=== PATIENT | male | born 1975 | race Caucasian/White ===

== ENCOUNTER 2019-10-13 01:57 | Emergency (ER) | payer SELFPAY ==
--- NOTE | ~2019-10-13 | XR_ITS ---
EXAMINATION: XR hand RT min 3V DATE: 10/13/2019 02:33 INDICATION: Right hand pain. Injury. TECHNIQUE: 3 views of right hand were obtained. COMPARISON: None. FINDINGS: Bone alignment is normal. No fracture. There is mild osteoarthritis of first carpometacarpa l joint, second metacarpophalangeal joint, and second distal interphalangeal joint. IMPRESSION: 1. Mild polyarticular osteoarthritis. Reviewed, dictated and finalized at location [facility]. [employer]
--- NOTE | 2019-10-13 01:59 | ED.UPPEXIN ---
HPI - Extremity Injury (Upper) General Chief Complaint: Extremity Injury, Upper Stated Complaint: finger pain Time Seen by Provider: 10/13/19 02:15 Source: patient Mode of arrival: ambulatory Limitations: no limitations History of Present Illness HPI narrative: The pt is a 43 y/o male who presents to the ED with c/o a rt index finger injury that occurred 2 days ago. The pt states that he was pushing on something and hyperextended his rt index finger. He reports rt index finger pain and numbness, describing the pain as a throbbing around his knuckle. The pt notes that he did not sustain any other injuries during the event. MD complaint: injury to: right (index finger) Onset (ago): day(s) (2) Other injuries: none Context: injury Associated symptoms: denies other symptoms Related Data Allergies Allergy/AdvReac Type Severity Reaction Status Date / Time No Known Allergies Allergy Verified 08/12/19 14:01 Review of Systems Review of Systems: All systems reviewed & are unremarkable except as noted in HPI and below Musculoskeletal: Musculoskeletal: Reports other (rt index finger pain) Neurologic: Reports numbness (rt index finger) [facility] Past Medical History Medical History (Updated 10/13/19 @ 02:37 by Brent Barrett DO) Arthritis Fractures Healing, ligaments torn right ankle Sciatica Surgical History Surgical History (Updated 10/13/19 @ 01:59 by Christa Wheat) No pertinent past surgical history Social History Social History (Updated 10/13/19 @ 02:00 by Christa Wheat) Smoking status: Never smoker Gender identity (if verbalized by the patient): Male Exam Narrative: Exam Narrative: APPEARANCE: No acute distress, nontoxic, resting in bed Eyes: EOMI HEENT: Normocephalic, atraumatic, RESPIRATORY: No respiratory distress MUSCULOSKELETAl: The right second digit is diffuselly swollen there is increased swelling around the PIP with ecchymosis present, pain with flexion of the PIP joint, full extension of the PIP, no tenderness over the MCP or DIP joint with full range of motion of both, capillary refill less than 3 seconds, neurovascular intact NEURO: Awake and alert. Following commands, speech normal, no focal deficits SKIN:: Warm, dry. Normal Color no rash or lesions Course Course Emergency Course: Discussed with patient results of workup and diagnosis. Discussed need for follow-up with primary care, proper use of medication, and reasons to return to the emergency department. Patient understands and agrees to current treatment plan Vital Signs Vital signs: Vital Signs Temperature 97.5 F L 10/13/19 02:02 Pulse Rate 100 10/13/19 02:02 Respiratory Rate 18 10/13/19 02:02 Blood Pressure 136/78 10/13/19 02:02 Pulse Oximetry 100 10/13/19 02:02 Temperature 97.5 F L 10/13/19 02:02 Pulse Rate 100 10/13/19 02:02 Respiratory Rate 18 10/13/19 02:02 Blood Pressure 136/78 10/13/19 02:02 Pulse Oximetry 100 10/13/19 02:02 MDM - Extremity Injury (Upper) Imaging Data My impression: RT HAND XR 10/13/19: IMPRESSION: Negative. Discharge Plan Discharge Clinical Impression: Other sprain of right index finger, initial encounter Patient Disposition: Home, Self-Care Condition: Stable Instructions: Antibiotic Form, Finger Sprain (ED) Additional Instructions: Return for increasing pain numbness or tingling in extremities or any other symptoms of concern Prescriptions: New ibuprofen [IBU] 600 mg tablet 600 mg PO Q6H PRN (Reason: pain) Qty: 20 RF: 0 No Action cetirizine [Zyrtec] 10 mg tablet 10 mg PO DAILY Qty: 30 RF: 0 fluticasone propionate [Flonase Allergy Relief] 50 mcg/actuation spray,suspension 1 spray NASAL BID Qty: 15.8 RF: 0 benzonatate 200 mg capsule 200 mg PO TID PRN (Reason: cough) 10 Days Qty: 30 RF: 0 Follow-up/Referrals: Kashif Moran MD [Physician] - (Follow-up in 1-2 days for further on-call physician treatment a
[2019-10-13 02:02] VITALS: BP 136/78; PULSE 100; RESP 18; TEMP 36.4; O2SAT 100
[2019-10-13 02:51] VITALS: BP 132/72; PULSE 82; RESP 18; O2SAT 98
== END 2019-10-13 02:54 | disposition home or self-care (01) ==
PROVIDERS: Emergency Provider Emergency Medicine
DX: S63.610A Unspecified sprain of right index finger, initial encounter (principal); M19.90 Unspecified osteoarthritis, unspecified site; X50.9XXA Other and unspecified overexertion or strenuous movements or postures, initial encounter
CPT/HCPCS: 29130; 73130; 99283

== ENCOUNTER 2019-11-06 14:21 | Emergency (ER) | payer SELFPAY ==
[2019-11-06 14:34] VITALS: BP 118/73; PULSE 73; RESP 16; TEMP 37.1; O2SAT 98
--- NOTE | 2019-11-06 14:42 | ED.DENTAL ---
HPI - Dental/Oral General Chief complaint: Dental/Oral Stated complaint: tooth ache History of Present Illness HPI Narrative: This a 43-year-old male comes in complaining of right lower jaw tooth pain patient has fractured teeth and missing teeth and called his dentist today who cannot see him due to he has too much swelling patient currently has an appointment on Tuesday and hopefully the swelling will be down. Patient states that he has severe pain states that the pain is 8 out of 10 he has been gargling warm salt water Related Data Allergies Allergy/AdvReac Type Severity Reaction Status Date / Time No Known Allergies Allergy Verified 11/06/19 14:41 Review of Systems Review of Systems: Narrative: CONSTITUTIONAL: Denies fever, chills, or sweats. EYES: Denies visual changes, redness, or discharge. ENT: Denies rhinorrhea, congestion, sore throat, or otalgia. positive dental pain and fracture tooth CARDIOVASCULAR:Denies chest pain, palpitations, or edema. RESPIRATORY: Denies cough or dyspnea. GASTROINTESTINAL: Denies abdominal pain, nausea, vomiting, or diarrhea. GENITOURINARY: Denies dysuria or hematuria. SKIN:[Denies rash or itching. MUSCULOSKELETAL:Denies back pain, joint pain, or myalgia. NEUROLOGIC: Denies headache, numbness, or weakness. PSYCHIATRIC:Denies anxiety or depression PMFSH Past Medical History Medical History (Updated 11/06/19 @ 14:43 by Leeroy Araujo NP) Arthritis Fractures Healing, ligaments torn right ankle Sciatica Surgical History Surgical History (Updated 10/13/19 @ 01:59 by Christa Wheat) No pertinent past surgical history Social History Social History (Updated 10/13/19 @ 02:00 by Christa Wheat) Smoking status: Never smoker Gender identity (if verbalized by the patient): Male Comments At time as signature, I have reviewed and agree with nursing past medical, social, surgical and family history. Please see nursing chart for further information. There is no relevant family history pertinent to the presenting complaint. Exam Narrative: Exam Narrative: GENERAL:Well-appearing, well-nourished, and in no acute distress. HEAD:Normocephalic, atraumatic. EYES: PERRLA and EOMI. ENT: Nares clear, no rhinorrhea or epistaxis. Mucous membranes moist. Left lower jaw fracture tooth erythema and swelling jaw pain and swelling NECK: Supple. CHEST: Clear to auscultation. No respiratory distress. HEART: Regular rate and rhythm. No murmur heard. Normal peripheral pulses. ABDOMEN: Soft, nontender, nondistended, normal active bowel sounds. EXTREMITIES: Normal range of motion. No edema. SKIN: Warm, dry, no rash. NEURO: No focal deficits. Alert and oriented x3. Course Vital Signs Vital signs: Vital Signs Temperature 98.8 F 11/06/19 14:34 Pulse Rate 73 11/06/19 14:34 Respiratory Rate 16 11/06/19 14:34 Blood Pressure 118/73 11/06/19 14:34 Pulse Oximetry 98 11/06/19 14:34 Temperature 98.8 F 11/06/19 14:34 Pulse Rate 73 11/06/19 14:34 Respiratory Rate 16 11/06/19 14:34 Blood Pressure 118/73 11/06/19 14:34 Pulse Oximetry 98 11/06/19 14:34 Discharge Plan Discharge Clinical Impression: Dental abscess, Toothache Patient Disposition: Home, Self-Care Condition: Stable Instructions: Antibiotic Form, Dental Abscess (ED), Acute Dental Trauma (ED), Toothache (ED), Mouth Care (ED) Prescriptions: New penicillin V potassium 500 mg tablet 500 mg PO Q12H 10 Days Qty: 20 RF: 0 ibuprofen 800 mg tablet 800 mg PO TID PRN (Reason: pain) Qty: 20 RF: 0 prednisone 20 mg tablet 40 mg PO ONCE 1 Days Qty: 2 RF: 0 Follow-up/Referrals: UNKNOWN,DOCTOR [Primary Care Provider] - Stand Alone Forms: Work/School Release IP Time of Disposition: 14:45 Discharge Date/Time: 11/06/19 14:52
== END 2019-11-06 14:52 | disposition home or self-care (01) ==
PROVIDERS: Emergency Provider Nurse Practitioner Family
DX: K04.7 Periapical abscess without sinus (principal); K08.89 Other specified disorders of teeth and supporting structures; M19.90 Unspecified osteoarthritis, unspecified site
CPT/HCPCS: 99213; G0463

== ENCOUNTER 2020-02-19 13:06 | Emergency (ER) | payer SELFPAY ==
[2020-02-19 13:17] VITALS: BP 104/73; PULSE 80; RESP 16; TEMP 37.1; O2SAT 97
--- NOTE | 2020-02-19 13:18 | ED.GENADULT ---
HPI - General Adult General Chief complaint: Back Pain/Injury Stated complaint: Back pain Time Seen by Provider: 02/19/20 13:25 Source: patient and RN notes reviewed Mode of arrival: ambulatory Limitations: no limitations History of Present Illness HPI narrative: This is a 44 years old male presented office for evaluation of lower back pain for a few days. Pain is getting worse especially with position changes. Admits to history of DJD and sciatica many years ago and he has flare been there ever since. 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 He took ibuprofen and tried ice/heat on affected area with minimal relief. Denies recent new injury or trauma. Related Data Allergies Allergy/AdvReac Type Severity Reaction Status Date / Time No Known Allergies Allergy Verified 02/19/20 13:23 Review of Systems Review of Systems: Narrative: CONSTITUTIONAL: Denies fever or feeling ill ENT: Denies congestion CARDIOVASCULAR: Denies chest pain RESPIRATORY: Denies dyspnea GASTROINTESTINAL: Denies abdominal pain, nausea, vomiting GENITOURINARY: Denies urinary or bowel incontinence SKIN: Denies rash/lesions MUSCULOSKELETAL:Reports chronic acute back pain with right side hip and thigh pain at times. NEUROLOGIC: Denies lightheaded/dizziness All other systems reviewed are negative, except as documented in HPI. [facility] Past Medical History Medical History Arthritis Fractures Healing, ligaments torn right ankle Sciatica Surgical History Surgical History No pertinent past surgical history Social History Social History (Updated 02/19/20 @ 13:38 by ELISA Chapman) Smoking status: Never smoker Substance use type: marijuana Gender identity (if verbalized by the patient): Male Comments At time of signature, I agree with nursing past medical, surgical, social and family history. There is no relevant family history pertinent to the presenting complaint. Exam Narrative: Exam Narrative: GENERAL: This is a well-nourished, well-developed patient, in no apparent distress. CARDIOVASCULAR: Regular rate and rhythm without murmurs, gallops, or rubs. RESPIRATORY: Clear to auscultation. Breath sounds equal bilaterally. No wheezes, rales, or rhonchi. GASTROINTESTINAL: Abdomen soft, non-tender, nondistended. Bowel sounds are active. No hepato-splenomegaly, or palpable masses. No guarding. SKIN: warm, intact with no suspicious lesions or rash, good texture and turgor. NEURO: awake, alert, and oriented to person, place and time. There were no obvious focal neurologic abnormalities. Steady gait BACK: BACK: Tenderness in the paraspinous muscles in the lumbar area. No tenderness over the spinous processes of the lumbar vertebrae. LEGS: Normal strength including dorsi-flexion and plantar flexion of the feet. Positive straight leg rise. Symmetrical knee reflexes. [place] Coma Scale Eye Opening: Spontaneous 4 [place] Coma Scale Motor: Obeys Commands 6 [place] Coma Scale Verbal: Oriented 5 Course Vital Signs Vital signs: Vital Signs Temperature 98.8 F 02/19/20 13:17 Pulse Rate 80 02/19/20 13:17 Respiratory Rate 16 02/19/20 13:17 Blood Pressure 104/73 02/19/20 13:17 Pulse Oximetry 97 02/19/20 13:17 Temperature 98.8 F 02/19/20 13:17 Pulse Rate 80 02/19/20 13:17 Respiratory Rate 16 02/19/20 13:17 Blood Pressure 104/73 02/19/20 13:17 Pulse Oximetry 97 02/19/20 13:17 Medical Decision Making MDM Narrative Medical decision making narrative: Discharge instructions reviewed with patient, as well as provided in writing per nursing staff. The instructions also include specific and strict return/GO TO THE ER as well as f/u information. All questions have been answered, and the patient deny any further questions with discharge and discharge plan. Differential Diagnosis Differentia
== END 2020-02-19 13:43 | disposition home or self-care (01) ==
PROVIDERS: Emergency Provider Nurse Practitioner
DX: M54.16 Radiculopathy, lumbar region (principal)
CPT/HCPCS: 99213; G0463

== ENCOUNTER 2020-03-08 16:03 | Emergency (ER) | payer SELFPAY ==
[2020-03-08 16:13] VITALS: BP 123/84; PULSE 61; RESP 18; TEMP 36.6; O2SAT 99
--- NOTE | 2020-03-08 16:39 | ED.GENADULT ---
HPI - General Adult General Chief complaint: Dental/Oral Stated complaint: toothache Time Seen by Provider: 03/08/20 16:39 Source: patient and RN notes reviewed Mode of arrival: ambulatory Limitations: no limitations History of Present Illness HPI narrative: 44-year-old male presents with complaints of left lower dental pain for the past 2 days. Ibuprofen and rinsing mouth with warm salt water without relief. Denies any drainage. No fever. No jaw swelling. No neck swelling. No limitation with speaking or swallowing. Has history of dental caries. No dental trauma. No oral lesions. Exacerbating factors consist of air getting into mouth, chewing on LT side, eating and drinking cold items. No relieving factors. No dentures or bridges. Tolerating liquids well. The patient reports he have not been diagnosed with COVID-19. The patient reports he is not waiting for the results of a COVID-19 lab test. The patient reports he do not have fever, chills, weakness, fatigue, myalgia, or facial swelling. The patient reports he do not have a new or worsening cough or shortness of breath. Denies chest pain. The patient reports he do not have any rhinorrhea, congestion, sore throat, nausea, vomiting, abdominal pain, and diarrhea. Tolerating po intake well. Denies recent traveling. Denies concerns for COVID-19 or exposures been home with limited outdoor exposure except for essential household needs, work, and return home. At this time, patient is not suspected of having COVID-19. Some parts of this dictation were generated by voice recognition software and may contain typographical and/or grammatical inaccuracies. Related Data Allergies Allergy/AdvReac Type Severity Reaction Status Date / Time No Known Allergies Allergy Verified 02/19/20 13:23 Review of Systems Review of Systems: Narrative: CONSTITUTIONAL: Denies fever, chills, sweats. EYES: Denies visual changes, redness, discharge. ENT: Denies rhinorrhea, congestion, sore throat, otalgia. Complains of LT lower dental pain. CARDIOVASCULAR: Denies chest pain, palpitations, edema. RESPIRATORY: Denies dyspnea, wheezing, cough. GASTROINTESTINAL: Denies abdominal pain, nausea, vomiting, diarrhea. GENITOURINARY: Denies dysuria, hematuria, abnormal discharge. SKIN: Denies rash or itching. MUSCULOSKELETAL: Denies acute back pain, joint pain, or myalgia. NEUROLOGIC: Denies numbness or focal weakness. PSYCHIATRIC: Denies anxiety or depression. All systems reviewed & are unremarkable except as noted in HPI and below. [facility] Past Medical History Medical History Arthritis Fractures Healing, ligaments torn right ankle Sciatica Surgical History Surgical History No pertinent past surgical history Family History Family History Father , Cancer No problems noted. Mother Acute myocardial infarction Social History Social History Smoking status: Never smoker Tobacco type: cigarettes Second hand tobacco smoke exposure: Yes Alcohol intake: former Substance use: current Substance use type: marijuana Gender identity (if verbalized by the patient): Male Comments At time of signature, agree with nurse past medical, surgical, social, and family history. There is no relevant family history pertinent to the presenting complaint. Exam Narrative: Exam Narrative: GENERAL: This is a well-nourished, well-developed patient, in no apparent distress. Talks in full sentences ans ambulates with steady gait without dyspnea. HEAD: normocephalic, atraumatic. EYES: PERRL. Sclera clear/white. Vision is grossly intact. EARS: External ears normal, auditory canals clear and without drainage, TMs normal without perforation. Hearing grossly intact.
== END 2020-03-08 16:47 | disposition home or self-care (01) ==
PROVIDERS: Emergency Provider Nurse Practitioner Family
DX: K04.7 Periapical abscess without sinus (principal); K08.89 Other specified disorders of teeth and supporting structures; M19.90 Unspecified osteoarthritis, unspecified site
CPT/HCPCS: 99213; G0463

== ENCOUNTER 2020-03-11 17:01 | Emergency (ER) | payer SELFPAY ==
[2020-03-11 17:06] VITALS: BP 118/69; PULSE 79; RESP 20; TEMP 36.7; O2SAT 99
--- NOTE | 2020-03-11 17:19 | ED.GENADULT ---
HPI - General Adult General Chief complaint: Dental/Oral Stated complaint: tooth abscess Time Seen by Provider: 03/11/20 17:19 Source: patient and RN notes reviewed Mode of arrival: ambulatory Limitations: no limitations History of Present Illness HPI narrative: This is a 44 years old male presented office for evaluation of dental pain for a couple days. He was seen in [facility] 3 days ago for this matter. He was given penicillin which he claims that it does not do very much for him. he said pain is worse today that he has to call off work tonight. He did not attempted to call a dentist because he thinks that they won't do anything anyway. Related Data Allergies Allergy/AdvReac Type Severity Reaction Status Date / Time No Known Allergies Allergy Verified 02/19/20 13:23 Review of Systems Review of Systems: Narrative: CONSTITUTIONAL: Denies fever, chills ENT: Reports dental pain with swelling/knot around his gum line CARDIOVASCULAR: Denies chest pain, palpitation RESPIRATORY: Denies dyspnea, wheezing, cough GASTROINTESTINAL: Denies abdominal pain, nausea, vomiting SKIN: Denies rash MUSCULOSKELETAL: Denies acute back pain NEUROLOGIC: Denies lightheaded All other systems reviewed are negative, except as documented in HPI. PMFSH Past Medical History Medical History Arthritis Fractures Healing, ligaments torn right ankle Sciatica Surgical History Surgical History No pertinent past surgical history Family History Family History Father , Cancer No problems noted. Mother Acute myocardial infarction Social History Social History Smoking status: Never smoker Tobacco type: cigarettes Second hand tobacco smoke exposure: Yes Alcohol intake: former Substance use: current Substance use type: marijuana Gender identity (if verbalized by the patient): Male Comments At time of signature, I agree with nursing past medical, surgical, social and family history. There is no relevant family history pertinent to the presenting complaint. Exam Narrative: Exam Narrative: GENERAL: This is a well-nourished, well-developed patient, in no apparent distress. EYES: Sclera and conjunctivae normal ENT: External ears normal. Nose and lips normal. Airway patent.The lower teeth in question are very carious and the gum is swollen and tender around it. There is no facial swelling, cervical or submandibular lymphadenopathy. The patient appears uncomfortable and in pain. CARDIOVASCULAR: Regular rate and rhythm without murmurs, gallops, or rubs. RESPIRATORY: Clear to auscultation. Breath sounds equal bilaterally. No wheezes, rales, or rhonchi. GASTROINTESTINAL: Abdomen soft, non-tender, nondistended. Bowel sounds are active. No hepato-splenomegaly, or palpable masses. No guarding. SKIN: warm, intact with no suspicious lesions or rash, good texture and turgor. NEURO: awake, alert, and oriented to person, place and time. There were no obvious focal neurologic abnormalities. Course Vital Signs Vital signs: Vital Signs Temperature 98.1 F 03/11/20 17:06 Pulse Rate 79 03/11/20 17:06 Respiratory Rate 20 03/11/20 17:06 Blood Pressure 118/69 03/11/20 17:06 Pulse Oximetry 99 03/11/20 17:06 Temperature 98.1 F 03/11/20 17:06 Pulse Rate 79 03/11/20 17:06 Respiratory Rate 20 03/11/20 17:06 Blood Pressure 118/69 03/11/20 17:06 Pulse Oximetry 99 03/11/20 17:06 Medical Decision Making MDM Narrative Medical decision making narrative: Discharge instructions reviewed with patient, as well as provided in writing per nursing staff. The instructions also include specific and strict return/GO TO THE ER as well as f/u information. All questions have bee
== END 2020-03-11 17:32 | disposition home or self-care (01) ==
PROVIDERS: Emergency Provider Nurse Practitioner
DX: K02.9 Dental caries, unspecified (principal); M19.90 Unspecified osteoarthritis, unspecified site
CPT/HCPCS: 99213; G0463

== ENCOUNTER 2020-12-11 19:33 | Emergency (ER) | payer SELFPAY ==
[2020-12-11 19:35] VITALS: BP 137/89; PULSE 99; RESP 18; TEMP 36.2; O2SAT 98
[2020-12-11 19:48] VITALS: BP 137/89; PULSE 79; RESP 18; TEMP 36.2; O2SAT 99
--- NOTE | 2020-12-11 20:28 | ED.GENADULT ---
HPI - General Adult General Chief complaint: Wound/Laceration Stated complaint: L great toe injury Time Seen by Provider: 12/11/20 19:44 Source: patient Mode of arrival: ambulatory Limitations: no limitations History of Present Illness HPI narrative: Patient is a 45-year-old gentleman who presented for evaluation of chronic toe pain patient notes overgrown enlarged toenail to the bilateral great toes patient notes that the left one has been slightly more tender over the last couple of days probably has stubbed it. Patient has never been seen for this complaint presents in no distress Related Data Allergies Allergy/AdvReac Type Severity Reaction Status Date / Time No Known Allergies Allergy Verified 02/19/20 13:23 Review of Systems Review of Systems: All systems reviewed & are unremarkable except as noted in HPI and below PMFSH Past Medical History Medical History (Updated 12/11/20 @ 20:32 by Kaden Ba PA-C) Arthritis Fractures Healing, ligaments torn right ankle Sciatica Surgical History Surgical History No pertinent past surgical history Family History Family History Father , Cancer No problems noted. Mother Acute myocardial infarction Social History Social History Smoking status: Never smoker Tobacco type: cigarettes Second hand tobacco smoke exposure: Yes Alcohol intake: former Substance use: current Substance use type: marijuana Gender identity (if verbalized by the patient): Male Exam Narrative: Exam Narrative: GENERAL: Well-appearing, well-nourished, and in no acute distress. HEAD: Normocephalic, atraumatic. EYES: PERRLA and EOMI. ENT: Nares clear, no rhinorrhea or epistaxis. Mucous membranes moist. ABDOMEN: Soft, nontender, nondistended EXTREMITIES: Normal range of motion. No edema. SKIN: Warm, dry, no rash. Bilateral overgrown toenails involving the great toenails there is a crack through the left great toenail mid toenail extending half-way through the nail no erythema or other concerning findings NEURO: No focal deficits. Alert and oriented x3. Cranial nerves II through XII grossly intact. PSYCH: Normal mood and affect. Course Course Emergency Course: Patient will be referred to podiatry for her toenail findings patient is agreeing with this plan patient given multiple podiatry follow-up Vital Signs Vital signs: Vital Signs Temperature 97.1 F L 12/11/20 19:35 Pulse Rate 99 12/11/20 19:35 Respiratory Rate 18 12/11/20 19:35 Blood Pressure 137/89 12/11/20 19:35 Pulse Oximetry 98 12/11/20 19:35 Temperature 97.1 F L 12/11/20 19:48 Pulse Rate 79 12/11/20 19:48 Respiratory Rate 18 12/11/20 19:48 Blood Pressure 137/89 12/11/20 19:48 Pulse Oximetry 99 12/11/20 19:48 Medical Decision Making MDM Narrative Medical decision making narrative: Patients injury or pain is consistent with musculoskeletal etiology. No signs of neurological or vascular compromise on exam. Compartments and tisues are soft without signs of compartment syndrome. Pain is felt appropriate for further evaluation on an outpatient basis. Vital Signs Vital Signs: Vital Signs Temperature 97.1 F L 12/11/20 19:35 Pulse Rate 99 12/11/20 19:35 Respiratory Rate 18 12/11/20 19:35 Blood Pressure 137/89 12/11/20 19:35 Pulse Oximetry 98 12/11/20 19:35 Temperature 97.1 F L 12/11/20 19:48 Pulse Rate 79 12/11/20 19:48 Respiratory Rate 18 12/11/20 19:48 Blood Pressure 137/89 12/11/20 19:48 Pulse Oximetry 99 12/11/20 19:48 Discharge Plan Discharge Clinical Impression: Onychomycosis Patient Disposition: Home, Self-Care Condition: Stable Instructions: Antibiotic Form Additional Instructions: Follow-up with podiatry in the next 7 days return if
[2020-12-11 20:55] VITALS: BP 138/72; PULSE 80; RESP 18; O2SAT 99
== END 2020-12-11 20:57 | disposition home or self-care (01) ==
PROVIDERS: Emergency Provider Emergency Medicine
DX: B35.1 Tinea unguium (principal); M19.90 Unspecified osteoarthritis, unspecified site; Z77.22 Contact with and (suspected) exposure to environmental tobacco smoke (acute) (chronic)
CPT/HCPCS: 99282

== ENCOUNTER 2021-05-20 14:09 | Emergency (ER) | payer SELFPAY ==
[2021-05-20 14:16] VITALS: BP 112/80; PULSE 82; RESP 16; TEMP 36.8; O2SAT 98
--- NOTE | 2021-05-20 14:28 | ED.BACK ---
HPI - Back Pain/Injury General Chief Complaint: Back Pain/Injury Stated Complaint: lower back pain Source: patient Mode of arrival: ambulatory Limitations: no limitations History of Present Illness HPI Narrative: Patient is a 45-year-old male who presents complaining of lumbar back pain x3 to 4 days with radiation to right leg. Patient reports a history of DDD, arthritis and sciatica but reports he has not had problems in some time. He reports taking ibuprofen with limited relief. He denies new injury. Denies urinary complaints. Denies loss of bowel or bladder control. He denies numbness and tingling in extremities. MD elicited complaint: back pain Related Data Allergies Allergy/AdvReac Type Severity Reaction Status Date / Time No Known Allergies Allergy Verified 05/20/21 14:11 Review of Systems Review of Systems: CONSTITUTIONAL: Denies fever, chills, or sweats. EYES: Denies visual changes, redness, or discharge. ENT: Denies rhinorrhea, congestion, sore throat, or otalgia. CARDIOVASCULAR: Denies chest pain, palpitations, or edema. RESPIRATORY: Denies cough or dyspnea. GASTROINTESTINAL: Denies abdominal pain, nausea, vomiting, or diarrhea. GENITOURINARY: Denies dysuria or hematuria. SKIN: Denies rash or itching. MUSCULOSKELETAL: Reports lower back pain NEUROLOGIC: Denies headache, numbness, dizziness, or weakness. PSYCHIATRIC: Denies anxiety or depression. [facility] Past Medical History Medical History (Updated 05/20/21 @ 14:31 by ELISA Carbajal) Arthritis Fractures Healing, ligaments torn right ankle Sciatica Surgical History Surgical History No pertinent past surgical history Family History Family History Father , Cancer No problems noted. Mother Acute myocardial infarction Social History Social History Smoking status: Never smoker Tobacco type: cigarettes Second hand tobacco smoke exposure: Yes Alcohol intake: former Substance use: current Substance use type: marijuana Gender identity (if verbalized by the patient): Male Sexual Orientation (if Verbalized by the Patient): Straight or Heterosexual Comments At the time of signature, I have reviewed and agree with nursing past medical, surgical, social, and family history unless otherwise noted. Please see nursing chart for further information. There is no relevant family history pertinent to the presenting complaint. Exam Narrative: GENERAL: Well-appearing, well-nourished, and in no acute distress. HEAD: Normocephalic, atraumatic. EYES: EOMI. No redness or drainage. Conjunctiva are normal. ENT: Mucous membranes pink and moist. CHEST: No respiratory distress. Clear to auscultation. HEART: Regular rate and rhythm. MUSCULOSKELETAL: No bony tenderness. EXTREMITIES: Normal range of motion. No edema. SKIN: Warm, dry, no rash. NEURO: No focal deficits. Alert and oriented x3. Gait steady. PSYCH: Normal affect. No signs of depression or anxiety. Course Vital Signs Vital signs: Vital Signs Temperature 36.8 C 05/20/21 14:16 Pulse Rate 82 05/20/21 14:16 Respiratory Rate 16 05/20/21 14:16 Blood Pressure 112/80 05/20/21 14:16 Pulse Oximetry 98 05/20/21 14:16 Temperature 36.8 C 05/20/21 14:16 Pulse Rate 82 05/20/21 14:16 Respiratory Rate 16 05/20/21 14:16 Blood Pressure 112/80 05/20/21 14:16 Pulse Oximetry 98 05/20/21 14:16 Reviewed MDM - Back Pain/Injury MDM Narrative Medical decision making narrative: Patient most likely has sciatica at this time along with the history of DJD and arthritis. Discussed with patient starting on prednisone, continuing to take ibuprofen and a muscle relaxant when not working or driving. Patient agrees with plan of care. Patient encouraged to find a PCP for further follow-up. Angela
== END 2021-05-20 14:40 | disposition home or self-care (01) ==
PROVIDERS: Emergency Provider Nurse Practitioner
DX: M54.16 Radiculopathy, lumbar region (principal); M54.31 Sciatica, right side; M19.90 Unspecified osteoarthritis, unspecified site
CPT/HCPCS: 99213; G0463

== ENCOUNTER 2021-06-06 13:02 | Emergency (ER) | payer SELFPAY ==
[2021-06-06 13:11] VITALS: BP 122/85; PULSE 77; RESP 16; TEMP 36.3; O2SAT 98
--- NOTE | 2021-06-06 13:21 | ED.NAVMDI ---
HPI - Nausea/Vomiting/Diarrhea General Chief complaint: Nausea/Vomiting/Diarrhea Stated complaint: nausea vomiting diarrhea Time Seen by Provider: 06/06/21 13:39 Source: patient and RN notes reviewed Mode of arrival: ambulatory Limitations: no limitations History of Present Illness HPI Narrative: 45-year-old male presents concern for nausea, vomiting, diarrhea. He denies abdominal pain. Reports symptoms started yesterday. Reports many episodes of vomiting that have evolved into dry heaving. Reports diarrhea only when he vomits. He denies fever, body aches, chills. Reports sweating when he vomits. He reports he drank milk overnight and is currently drinking a Sprite. He has not ate any food. He reports an episode of dizziness with movement that has improved, does not currently have dizziness. Denies any known sick contacts. Denies any other family members are ill. MD elicited complaint: vomiting Related Data Allergies Allergy/AdvReac Type Severity Reaction Status Date / Time No Known Allergies Allergy Verified 05/20/21 14:11 Review of Systems Review of Systems: CONSTITUTIONAL: Denies malaise, chills, or fever. EYES: Denies visual changes, redness, or discharge. ENT: Denies rhinorrhea, congestion, sinus pain, otalgia or sore throat. CARDIOVASCULAR: Denies chest pain, palpitations, or edema. RESPIRATORY: Denies cough or dyspnea. GASTROINTESTINAL: Denies abdominal pain. Nausea, vomiting, diarrhea. Bloody, or mucous stools. GENITOURINARY: Denies dysuria or hematuria. SKIN: Denies rash or itching. MUSCULOSKELETAL: Denies myalgia. NEUROLOGIC: Denies headache. All systems reviewed & are unremarkable except as noted in HPI and below PMFSH Past Medical History Medical History (Updated 06/06/21 @ 13:49 by Bernadette Sheldon NP) Arthritis Fractures Healing, ligaments torn right ankle Sciatica Surgical History Surgical History No pertinent past surgical history Family History Family History Father , Cancer No problems noted. Mother Acute myocardial infarction Social History Social History Smoking status: Never smoker Tobacco type: cigarettes Second hand tobacco smoke exposure: Yes Alcohol intake: former Substance use: current Substance use type: marijuana Gender identity (if verbalized by the patient): Male Sexual Orientation (if Verbalized by the Patient): Straight or Heterosexual Comments At time of signature, agree with nursing past medical, surgical, social and family history. There is no relevant family history pertinent to the presenting complaint Exam Narrative: GENERAL: Well-appearing, well-nourished, and in no acute distress. HEAD: Normocephalic, atraumatic. EYES: PERRLA, conjunctivae clear, and EOMI. ENT: Mucous membranes moist. NECK: Supple. No lymphadenopathy CHEST: Speaks in full sentences. No respiratory distress. HEART: Regular rate and rhythm. ABDOMEN: Soft, flat, nondistended. No guarding, rebound tenderness, or rigid. No pulsatilla masses. Bowel sounds present in all four quadrants. No organomegaly. Negative Dinero?s sign. No periumbilical tenderness. No Supra public tenderness or distension. SKIN: Warm, dry, no rash. NEURO: Alert and oriented x3. PSYCH: Normal mood and affect Course Course Emergency Course: Patient is aware of diagnosis, understands and agrees to treatment plan. Anticipatory guidance given. Patient agrees to follow-up as directed and is aware of reasons to seek care at the emergency department. Portions of this record may have been created with voice recognition software Vital Signs Vital signs: Vital Signs Temperature 97.3 F L 06/06/21 13:11 Pulse Rate 77 06/06/21 13:11 Respiratory Rate 16 06/06/21 13:11 Blood Pressure 122/85 06/06/21 13:11 Pulse Oxim
[2021-06-06] MEDS: ONDANSETRON HCL ODT 4 MG TABLET PO (13:54)
== END 2021-06-06 14:03 | disposition home or self-care (01) ==
PROVIDERS: Emergency Provider Nurse Practitioner
DX: R11.2 Nausea with vomiting, unspecified (principal); M19.90 Unspecified osteoarthritis, unspecified site
CPT/HCPCS: 99213; A9270; G0463

== ENCOUNTER 2021-06-29 19:36 | Emergency (ER) | payer SELFPAY ==
[2021-06-29 19:47] VITALS: BP 112/83; PULSE 105; RESP 16; TEMP 36.7; O2SAT 98
--- NOTE | 2021-06-29 20:42 | ED.GENADULT ---
HPI - General Adult General Chief complaint: Extremity Injury, Lower Stated complaint: Right leg and hip Pain Time Seen by Provider: 06/29/21 20:30 Source: patient, family and RN notes reviewed Mode of arrival: ambulatory Limitations: no limitations History of Present Illness HPI narrative: 45 year old male accompanied by presents to express care with complaint of history of having history of sciatica which has been bothering him for the past 1 month with increased pain in the past 2 days. He reports that pain is worse today with lower back discomfort which radiates into his right buttock and down his right leg. 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 Patient reports that his pain down his buttock and into his leg is a burning type of pain and rates it 7/10. He states that he has been taking Ibuprofen with no decrease in his pain. He denies any saddle paraesthesia, denies any difficulty with his bowel or bladder function. Patient reports that he has never seen pain management for his back problems did have MRI at [facility] 3-4 years ago but no recent diagnostic testing. MD complaint: lumbar pain with sciatica Onset (ago): month(s) (1 with increase in pain past 2 days) Related Data Allergies Allergy/AdvReac Type Severity Reaction Status Date / Time No Known Allergies Allergy Verified 06/29/21 19:45 Review of Systems Review of Systems: CONSTITUTIONAL: Denies fever, chills, or sweats. EYES: Denies visual changes, redness, or discharge. ENT: Denies rhinorrhea, congestion, sore throat, or otalgia. CARDIOVASCULAR: Denies chest pain, palpitations, or edema. RESPIRATORY: Denies cough or dyspnea. GASTROINTESTINAL: Denies abdominal pain, nausea, vomiting, or diarrhea. or any constipation GENITOURINARY: Denies dysuria or hematuria. SKIN: Denies rash or itching. MUSCULOSKELETAL: positive for acute/chronic lower back pain with right sciatica back pain, joint pain, or myalgia. NEUROLOGIC: Denies headache, numbness, or weakness. PSYCHIATRIC: Denies anxiety or depression. All systems reviewed & are unremarkable except as noted in HPI and below PMFSH Past Medical History Medical History (Updated 07/04/21 @ 15:12 by Josefa Perdomo NP) Arthritis Fracture of left hand Fractures Healing, ligaments torn right ankle Sciatica Surgical History Surgical History No pertinent past surgical history Family History Family History Father , Cancer No problems noted. Mother Acute myocardial infarction Social History Social History Smoking status: Never smoker Tobacco type: cigarettes Second hand tobacco smoke exposure: Yes Alcohol intake: former Substance use: current Substance use type: marijuana Gender identity (if verbalized by the patient): Male Sexual Orientation (if Verbalized by the Patient): Straight or Heterosexual Comments At time of signature, agree with nursing past medical, surgical, social and family history. There is no relevant family history pertinent to the presenting complaint Exam Narrative: GENERAL: Well-appearing, well-nourished, and in some acute stated distress. HEAD: Normocephalic, atraumatic. EYES: PERRLA and EOMI. ENT: Nares clear, no rhinorrhea or epistaxis. Mucous membranes moist.TM's normal, throat pink with no lesions or exudates or tonsil enlargement NECK: Supple. no lymphadenopathy CHEST: Clear to auscultation. No respiratory distress. HEART: Regular rate and rhythm. No murmur heard. Normal peripheral pulses. ABDOMEN: Soft, nontender, nondistended, normal active bowel sounds. EXTREMITIES: Normal range of motion. No edema.lower back pain with radiation down right buttock into right leg described as burning pain, circulation and sensation intact , increased pain verbal
== END 2021-06-29 21:00 | disposition home or self-care (01) ==
PROVIDERS: Emergency Provider Registered Nurse
DX: M54.41 Lumbago with sciatica, right side (principal); M19.90 Unspecified osteoarthritis, unspecified site
CPT/HCPCS: 99213; G0463

== ENCOUNTER 2021-12-15 19:36 | Emergency (ER) | payer SELFPAY ==
--- NOTE | 2021-12-15 19:37 | ED.DENTAL ---
HPI - Dental/Oral General Chief complaint: Dental/Oral Stated complaint: tooth pain Time Seen by Provider: 12/15/21 19:36 Source: patient Mode of arrival: ambulatory Limitations: no limitations History of Present Illness HPI Narrative: Mr. Talamantes is a 46-year-old male patient presenting to the clinic today with complaints of tooth ache to 3 days. He reports he has had this pain off and on for a couple years and has not had insurance to take care of it. He reports he is getting x-rays tomorrow however he does not have insurance that is going to kick in about 2 months. Has an appointment with [facility] in the morning Related Data Allergies Allergy/AdvReac Type Severity Reaction Status Date / Time No Known Allergies Allergy Verified 12/15/21 19:40 Review of Systems Review of Systems: Pertinent positives per HPI. Patient denies any fever, chills, rash, headache, visual changes, dizziness, cough, runny nose, sore throat, shortness of breath, chest pain, palpitations, nausea, vomiting, diarrhea, constipation, abdominal pain, or any urinary issues. PMFSH Past Medical History Medical History Arthritis Fracture of left hand Fractures Healing, ligaments torn right ankle Sciatica Surgical History Surgical History No pertinent past surgical history Family History Family History Father , Cancer No problems noted. Mother Acute myocardial infarction Social History Social History Smoking status: Never smoker Tobacco type: cigarettes Second hand tobacco smoke exposure: Yes Alcohol intake: former Substance use: current Substance use type: marijuana Gender identity (if verbalized by the patient): Male Sexual Orientation (if Verbalized by the Patient): Straight or Heterosexual Comments At the time of my signature, I reviewed and agree with the nursing past medical, surgical, social, and family history. There is no relevant family history pertinent to the patient complaint. Exam Narrative: General: Well-developed, well nourished, in no apparent distress Head: Normocephalic, atraumatic Eyes: Pupils equally round and reactive to light bilaterally, EOM intact, sclera and conjunctive clear, no discharge, lids normal Ears: TMs intact and clear, ear canals clear, no drainage, grossly hearing normal. Nose: Nares patent, no discharge, no inflammation, no sinus tenderness. Mouth: Oropharynx without lesions or masses, poor dentition, #30 tooth broken and has swollen gums, small amount palpable over the jaw just below tooth, MMM. Neck: Supple, trachea midline, no enlargement of anterior or posterior cervical nodes, no thyroid masses or goiter palpable. Cardio: Regular rate and rhythm, s1 and s2 normal, no murmur appreciated. Resp: Clear to auscultation bilaterally anteriorly and posteriorly, no rhonchi, rales, wheezing or rubs Course Course Emergency Course: Portions of this record may have been created with voice recognition software. Level of Care: Express Care Visit Vital Signs Vital signs: Vital signs reviewed MDM - Dental/Oral MDM Narrative Medical decision making narrative: At the time of visit patient is resting comfortably on the exam table. Offered dental block and patient declined. #30 tooth is broken and decayed with redness and swelling to the gum. I will go ahead and treat for a dental infection and give a prescription for amoxicillin as well as ibuprofen. Patient is to follow-up with dentist tomorrow as scheduled. Supportive measures were discussed and patient voiced understanding of discharge instructions Discharge Plan Discharge Clinical Impression: Toothache, Dental infection Patient Disposition: Home, Self-Care Condition:
[2021-12-15 19:42] VITALS: BP 149/95; PULSE 83; RESP 16; TEMP 37.3; O2SAT 99
== END 2021-12-15 20:00 | disposition home or self-care (01) ==
PROVIDERS: Emergency Provider Nurse Practitioner Family
DX: K04.7 Periapical abscess without sinus (principal)
CPT/HCPCS: 99213; G0463

== ENCOUNTER 2022-08-12 14:35 | Emergency (ER) | payer OTHER, SELFPAY ==
--- NOTE | 2022-08-12 14:55 | ED.BACK ---
HPI - Back Pain/Injury General Chief Complaint: Back Pain/Injury Stated Complaint: Lower Back Pain Time Seen by Provider: 08/12/22 14:55 Source: patient Mode of arrival: ambulatory Limitations: no limitations History of Present Illness HPI Narrative: Mr. Talamantes is a 46-year-old male patient presenting to clinic today with complaints of low back pain 2-3 days. He reports no injury known. 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 Reports pain to the low back that is dull and aching. he denies any radiation of the pain. He reports the pain is currently 6/10. He has taken ibuprofen over the last few days and that has helped his pain. he denies any saddle anesthesia or loss of bowel or bladder. Related Data Allergies Allergy/AdvReac Type Severity Reaction Status Date / Time No Known Allergies Allergy Verified 08/12/22 14:40 Review of Systems Review of Systems: Pertinent positives per HPI. Patient denies any fever, chills, rash, headache, visual changes, dizziness, cough, runny nose, sore throat, shortness of breath, chest pain, palpitations, nausea, vomiting, diarrhea, constipation, abdominal pain, or any urinary issues. [facility] Past Medical History Medical History Arthritis Fracture of left hand Fractures Healing, ligaments torn right ankle Sciatica Surgical History Surgical History No pertinent past surgical history Family History Family History Father , Cancer No problems noted. Mother Acute myocardial infarction Social History Social History Smoking status: Never smoker Tobacco type: cigarettes Second hand tobacco smoke exposure: Yes Alcohol intake: former Substance use: current Substance use type: marijuana Gender identity (if verbalized by the patient): Male Sexual Orientation (if Verbalized by the Patient): Straight or Heterosexual Comments At the time of my signature, I reviewed and agree with the nursing past medical, surgical, social, and family history. There is no relevant family history pertinent to the patient complaint. Exam Narrative: General: Well-developed, obese, in no apparent distress Head: Normocephalic, atraumatic. Cardio: Regular rate and rhythm, s1 and s2 normal, no murmur appreciated. Resp: Clear to auscultation bilaterally, no rhonchi, rales, wheezing or rubs. Musculoskeletal: No deformity, tender to palpation over the paraspinous muscles of the low back/posterior hip, grossly normal range of motion, pain to the musculature when turning side to side, bilateral straight leg test negative, patellar reflexes 2/4 bilaterally, bilateral muscle strength strong and equal, negative foot drop, peripheral pulse strong, no edema, no cyanosis, normal gait and station Course Course Emergency Course: Portions of this record may have been created with voice recognition software. Level of Care: Express Care Visit Vital Signs Vital signs: Vital Signs Temperature 37.0 C 08/12/22 14:57 Pulse Rate 87 08/12/22 14:57 Respiratory Rate 16 08/12/22 14:57 Blood Pressure 107/56 L 08/12/22 14:57 Pulse Oximetry 99 08/12/22 14:57 Oxygen Delivery Room Air 08/12/22 14:57 Temperature 37.0 C 08/12/22 14:57 Pulse Rate 87 08/12/22 14:57 Respiratory Rate 16 08/12/22 14:57 Blood Pressure 107/56 L 08/12/22 14:57 Pulse Oximetry 99 08/12/22 14:57 Oxygen Delivery Room Air 08/12/22 14:57 Vital signs reviewed MDM - Back Pain/Injury MDM Narrative Medical decision making narrative: At the time of visit patient is resting comfortably on the exam table. I suspect patient has a low back strain/ low back pain. Prescription for Flexeril and naproxen was sent to the ph[facility]
[2022-08-12 14:57] VITALS: BP 107/56; PULSE 87; RESP 16; TEMP 37; O2SAT 99
[2022-08-12] MEDS: KETOROLAC (*BKC) 60 MG/2 ML VIAL IM (15:11)
== END 2022-08-12 15:41 | disposition home or self-care (01) ==
PROVIDERS: Emergency Provider Nurse Practitioner Family
DX: S39.012A Strain of muscle, fascia and tendon of lower back, initial encounter (principal); X58.XXXA Exposure to other specified factors, initial encounter; M19.90 Unspecified osteoarthritis, unspecified site; F12.90 Cannabis use, unspecified, uncomplicated
CPT/HCPCS: 96372; 99213; G0463; J1885

== ENCOUNTER 2022-09-15 13:33 | Emergency (ER) | payer OTHER, SELFPAY ==
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
[2022-09-15 13:41] VITALS: BP 120/83; PULSE 81; RESP 16; TEMP 36.5; O2SAT 100
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
== END 2022-09-15 14:55 | disposition home or self-care (01) ==
PROVIDERS: Emergency Provider Nurse Practitioner Family
DX: S30.1XXA Contusion of abdominal wall, initial encounter (principal); V43.52XA Car driver injured in collision with other type car in traffic accident, initial encounter; M19.90 Unspecified osteoarthritis, unspecified site
CPT/HCPCS: 74018; 99213; G0463

== ENCOUNTER 2022-12-06 19:51 | Emergency (ER) | payer SELFPAY ==
--- NOTE | 2022-12-06 19:57 | ED.EYEPROB ---
HPI - Eye Problem General Chief complaint: Eye Problems Stated complaint: Left Eye Irritation Time Seen by Provider: 12/06/22 19:57 Source: patient Mode of arrival: ambulatory Limitations: no limitations History of Present Illness HPI Narrative: 47-year-old male presents with complaint left eye redness, swelling, irritation and drainage for 2-3 days. No vision changes. Reports that pain and redness became worse today. Was unable to sleep. States that his left lower eyelid is sore when he rubs it. Denies foreign body. Reports history of stye. 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 All systems reviewed and negative except as noted above. Related Data Allergies Allergy/AdvReac Type Severity Reaction Status Date / Time No Known Allergies Allergy Verified 08/12/22 14:40 Review of Systems Review of Systems: CONSTITUTIONAL: Denies fever, chills, or sweats. EYES: Denies visual changes . reports left eye redness, swelling and drainage. ENT: Denies rhinorrhea, congestion, sore throat, or otalgia. CARDIOVASCULAR: Denies chest pain, palpitations, or edema. RESPIRATORY: Denies cough or dyspnea. GASTROINTESTINAL: Denies abdominal pain, nausea, vomiting, or diarrhea. GENITOURINARY: Denies dysuria or hematuria. SKIN: Denies rash or itching. MUSCULOSKELETAL: Denies back pain, joint pain, or myalgia. NEUROLOGIC: Denies headache, numbness, or weakness. PSYCHIATRIC: Denies anxiety or depression. All other systems reviewed are negative, except as documented in HPI. [facility] Past Medical History Medical History Arthritis Fracture of left hand Fractures Healing, ligaments torn right ankle Sciatica Surgical History Surgical History No pertinent past surgical history Family History Family History Father , Cancer No problems noted. Mother Acute myocardial infarction Social History Social History Smoking status: Never smoker Tobacco type: cigarettes Second hand tobacco smoke exposure: Yes Alcohol intake: former Substance use: current Substance use type: marijuana Living arrangements: with family Occupation/Education: occupation Gender identity (if verbalized by the patient): Male Sexual Orientation (if Verbalized by the Patient): Straight or Heterosexual Comments At time of signature, agree with nursing past medical, surgical, social and family history. There is no relevant family history pertinent to the presenting complaint. Exam Narrative: GENERAL: This is a well-nourished, well-developed patient, in no apparent distress. HEAD: normocephalic, atraumatic. EYES: PERRL. erythema to sclera and conjunctiva. clear drainage with some specks of purulent drainage. tenderness along L lower eyelid. there is a tiny skin abnormality along the lower eyelid like an abrasion or laceartion from pt rubbing at eye. EARS: External ears normal NOSE: External nose normal NECK: Neck supple, non-tender without lymphadenopathy, masses or thyromegaly. CARDIOVASCULAR: Regular rate and rhythm without murmurs, gallops, or rubs. RESPIRATORY: Clear to auscultation. Breath sounds equal bilaterally. No wheezes, rales, or rhonchi. SKIN: warm, Dry, intact with no suspicious lesions or rash, good texture and turgor. NEURO: awake, alert, and oriented to person, place and time. There were no obvious focal neurologic abnormalities. EXTREMITIES: No joint tenderness, effusion, or edema noted. Course Course Level of Care: Express Care Visit Vital Signs Vital signs: Vital Signs Temperature 36.9 C 12/06/22 20:00 Pulse Rate 83 12/06/22 20:00 Respiratory Rate 16 12/06/22 20:00 Blood Pressure 110/62 12/06/22 20:00 Pu
[2022-12-06 20:00] VITALS: BP 110/62; PULSE 83; RESP 16; TEMP 36.9; O2SAT 98
== END 2022-12-06 20:09 | disposition home or self-care (01) ==
PROVIDERS: Emergency Provider Nurse Practitioner Family
DX: H10.32 Unspecified acute conjunctivitis, left eye (principal); M19.90 Unspecified osteoarthritis, unspecified site
CPT/HCPCS: 99213; G0463

== ENCOUNTER 2022-12-08 15:03 | Emergency (ER) | payer SELFPAY ==
[2022-12-08 15:10] VITALS: BP 135/81; PULSE 100; RESP 18; TEMP 37.2; O2SAT 99
--- NOTE | 2022-12-08 15:31 | ED.EYEPROB ---
HPI - Eye Problem General Chief complaint: Eye Problems Stated complaint: left eye red Time Seen by Provider: 12/08/22 15:11 History of Present Illness HPI Narrative: Patient is a 47-year-old male who presents ER with left eye irritation. Reports he has had irritation to his left lower lid for several days and has been rubbing it. He was seen at urgent care and prescribed topical erythromycin ophthalmic. Patient has no change in his vision. He has some mild tearing. He still feels a foreign body sensation so he came here for further evaluation. Related Data Allergies Allergy/AdvReac Type Severity Reaction Status Date / Time No Known Allergies Allergy Verified 12/08/22 15:10 Review of Systems Constitutional: Constitutional: Denies chills and Denies fever(s) Eyes: Eyes: Denies change in vision and Denies photophobia Comments: Irritation to left eye and lower lid with foreign body sensation. ENT: Denies nasal congestion and Denies sore throat PMFSH Past Medical History Medical History Arthritis Fracture of left hand Fractures Healing, ligaments torn right ankle Sciatica Surgical History Surgical History No pertinent past surgical history Family History Family History Father , Cancer No problems noted. Mother Acute myocardial infarction Social History Social History Smoking status: Never smoker Tobacco type: cigarettes Second hand tobacco smoke exposure: Yes Alcohol intake: former Substance use: current Substance use type: marijuana Living arrangements: with family Occupation/Education: occupation Gender identity (if verbalized by the patient): Male Sexual Orientation (if Verbalized by the Patient): Straight or Heterosexual Exam Narrative: GENERAL: Well-appearing, well-nourished, and in no acute distress. HEAD: Normocephalic, atraumatic. EYES: PERRLA and EOMI. exam left eye with magnification and fluorescein staining reveals no corneal abrasion. No retained foreign body beneath the upper or lower lids. The left lower lid laterally has a small growth. Difficult to tell if it could be a skin tag or scab or something more sinister. ENT: Mucous membranes moist. NEURO: Alert and oriented x3. PSYCH: Normal mood and affect. Course Course Emergency Course: Discussed with patient he needs to see an first aid attendant as additional evaluation here is limited. Should patient have a growth that needs to be excised I would also need to be cared for through ophthalmology. Patient verbalized understanding of need to follow-up with specialist. Vital Signs Vital signs: Vital Signs Temperature 98.9 F 12/08/22 15:10 Pulse Rate 100 12/08/22 15:10 Respiratory Rate 18 12/08/22 15:10 Blood Pressure 135/81 12/08/22 15:10 Pulse Oximetry 99 12/08/22 15:10 Oxygen Delivery Room Air 12/08/22 15:10 Temperature 98.9 F 12/08/22 15:10 Pulse Rate 100 12/08/22 15:10 Respiratory Rate 18 12/08/22 15:10 Blood Pressure 135/81 12/08/22 15:10 Pulse Oximetry 99 12/08/22 15:10 Oxygen Delivery Room Air 12/08/22 15:10 Discharge Plan Discharge Clinical Impression: Growth of eyelid Patient Disposition: Home, Self-Care Condition: Stable Additional Instructions: Follow-up with an eye doctor for further evaluation of this lesion on your eye. Return the ER if you lose your vision, you have fever over 100.4 ?F, you have additional concerns. Try to make an appointment at [facility] or [facility]. Prescriptions: No Action erythromycin 5 mg/gram (0.5 %) ointment 1 applic LEFT EYE QID 7 Days Qty: 3.5 0RF Follow-up/Referrals: PHYSICIAN,PHONE SCREENER [Primary Care Provider] -
[2022-12-08 16:07] VITALS: BP 133/82; PULSE 89; RESP 18; O2SAT 100
== END 2022-12-08 16:08 | disposition home or self-care (01) ==
PROVIDERS: Emergency Provider Emergency Medicine
DX: H02.89 Other specified disorders of eyelid (principal); M19.90 Unspecified osteoarthritis, unspecified site; Z77.22 Contact with and (suspected) exposure to environmental tobacco smoke (acute) (chronic)
CPT/HCPCS: 99283; A9270

== ENCOUNTER 2023-04-22 10:50 | Emergency (ER) | payer OTHER, SELFPAY ==
[2023-04-22 11:02] VITALS: BP 121/75; PULSE 81; RESP 16; TEMP 36.8; O2SAT 99
--- NOTE | 2023-04-22 11:14 | ED.NAVMDI ---
HPI - Nausea/Vomiting/Diarrhea General Chief complaint: Nausea/Vomiting/Diarrhea Stated complaint: upset stomach Time Seen by Provider: 04/22/23 11:14 Source: patient Mode of arrival: ambulatory Limitations: no limitations History of Present Illness HPI Narrative: 47-year-old female presents with complaint of nausea vomiting diarrhea, fatigue, chills for the past 3 days. States that he has missed 3 days of work and needs a work note. Last vomited yesterday. Has been able to keep down fluids but has not tried eating any solid foods. Last episode of diarrhea was this morning. States that he is feeling much better. Afebrile. Requesting note to return to work on Tuesday. All systems reviewed and negative except as noted above. Related Data Home Medications Medication Instructions Recorded Confirmed No Home Medications 04/22/23 04/22/23 Allergies Allergy/AdvReac Type Severity Reaction Status Date / Time No Known Allergies Allergy Verified 04/22/23 11:22 Review of Systems Review of Systems: CONSTITUTIONAL: Denies fever, chills, or sweats. reports fatigue. EYES: Denies visual changes, redness, or discharge. ENT: Denies rhinorrhea, congestion, sore throat, or otalgia. CARDIOVASCULAR: Denies chest pain, palpitations, or edema. RESPIRATORY: Denies cough or dyspnea. GASTROINTESTINAL: Denies abdominal pain . Reports nausea, vomiting, or diarrhea. GENITOURINARY: Denies dysuria or hematuria. SKIN: Denies rash or itching. MUSCULOSKELETAL: Denies back pain, joint pain, or myalgia. NEUROLOGIC: Denies headache, numbness, or weakness. PSYCHIATRIC: Denies anxiety or depression. All other systems reviewed are negative, except as documented in HPI. [facility] Past Medical History Medical History Arthritis Fracture of left hand Fractures Healing, ligaments torn right ankle Sciatica Surgical History Surgical History No pertinent past surgical history Family History Family History Father , Cancer No problems noted. Mother Acute myocardial infarction Social History Social History Smoking status: Never smoker Tobacco type: cigarettes Second hand tobacco smoke exposure: Yes Alcohol intake: former Substance use: current Substance use type: marijuana Living arrangements: with family Occupation/Education: occupation Gender identity (if verbalized by the patient): Male Sexual Orientation (if Verbalized by the Patient): Straight or Heterosexual Comments At time of signature, agree with nursing past medical, surgical, social and family history. There is no relevant family history pertinent to the presenting complaint. Exam Narrative: GENERAL: This is a well-nourished, well-developed patient, in no apparent distress. HEAD: normocephalic, atraumatic. EYES: PERRL. Sclera clear/white. Vision is grossly intact. EARS: External ears normal NOSE: External nose normal NECK: Neck supple, non-tender without lymphadenopathy, masses or thyromegaly. CARDIOVASCULAR: Regular rate and rhythm without murmurs, gallops, or rubs. RESPIRATORY: Clear to auscultation. Breath sounds equal bilaterally. No wheezes, rales, or rhonchi. GASTROINTESTINAL: Abdomen soft, non-tender, nondistended. Bowel sounds are active. No hepato-splenomegaly, or palpable masses. No guarding. SKIN: warm, Dry, intact with no suspicious lesions or rash, good texture and turgor. NEURO: awake, alert, and oriented to person, place and time. There were no obvious focal neurologic abnormalities. EXTREMITIES: No joint tenderness, effusion, or edema noted. Course Course Level of Care: Express Care Visit Vital Signs Vital signs: Vital Signs Temperature 36.8 C 04/22/23 11:02 Pu
== END 2023-04-22 11:27 | disposition home or self-care (01) ==
PROVIDERS: Emergency Provider Nurse Practitioner Family
DX: A08.4 Viral intestinal infection, unspecified (principal); M19.90 Unspecified osteoarthritis, unspecified site
CPT/HCPCS: 99211; G0463

== ENCOUNTER 2023-07-27 10:49 | Outpatient (CLI) | payer OTHER, SELFPAY ==
--- NOTE | ~2023-07-27 | XR_ITS ---
Lumbosacral Spine: AP and lateral views Clinical History: Pain Findings: The normal lordotic curve is maintained. No fracture or subluxation seen. There is moderate to advanced degenerative L4-L5 and L5-S1. There is moderate facet arthropathy throughout the lumbar spine. The sacroiliac joints are normally outlined. Impression: Moderate degenerative spondylosis, as above. Reviewed, dictated and finalized at location . [facility] HELPER Impression: Moderate degenerative spondylosis, as above.
== END 2023-07-27 10:50 | disposition home or self-care (01) ==
LOC: ANHIMG 10:54
DX: M54.50 Low back pain, unspecified (principal); M43.06 Spondylolysis, lumbar region
CPT/HCPCS: 72100

== ENCOUNTER 2023-09-15 09:45 | Outpatient (RCR) | payer OTHER, SELFPAY ==
--- NOTE | 2023-07-14 13:55 | PTOPEVAL1 ---
Assessment and note entered by Garrett Cisneros Evaluation Information Assessment Status Evaluation Diagnosis right side sciatica Onset 07/06/23 Subjective Information Pt. reports that he has had on/off back pain for years. He reports that pain is located in the lower, middle portion of the back. he describes pain going into the right buttock and into the right leg. He describes a burning sensation in the right leg. 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 He continues to work despite his pain. He reports that ibuprofen can help to ease his pain. he reports that standing for greater than 1 hour is difficult due to increasing pain. he reports that he did attempt physical therapy about 5-6 years ago, with some relief. He reports that his goal is to reduce his right leg and low back pain. Reported Pain Level Pain Score 2: Self Report Assessment PT Clinical Summary Pt. is a 47 year old male who enters the clinic with ride side sciatica with LBP. He presents with impaired trunk mobility, impaired postural awareness, proximal right l.e. weakness and pain in this date. Continued skilled PT is indicated in order to improve these areas to allow for improved comfort with IADL performance. Plan of Care Interventions Electrical Stimulation,Gait Training,Hot Pack/Cold Pack,Manual Therapy,Mechanical Traction,Neuro Re- education,Patient/Caregiver Educati,Therapeutic Activities,Therapeutic Exercise PT Services Indicated Yes Treatment Frequency and 2x/week x 6 visits Duration These treatments will address the objective and functional deficits as defined above. The patient will be advanced safely and appropriately in order for the patient to progress towards his/her prior level of function. Additional exercises will be introduced and as well as a comprehensive home exercise program upon discharge, if needed, ?to ensure carryover of functional gains achieved in the clinic. This treatment plan has been reviewed and agreement upon by the patient.
--- NOTE | 2023-07-14 13:56 | OPREHPOC ---
Outpatient Therapy Plan of Care This is a Multidisciplinary Plan of Care that may contain components documented by all disciplines (PT, OT, and ST.) PT Problem 1 PT Problem #1 Knowledge Deficit PT Goal 1 Goal Independent with a HEP addressing trunk mobility and core strength Target Visit 2 PT Problem 2 PT Problem #2 Impaired Flexibility PT Goal 1 Goal Pt. will present at 20 degrees or less on both left and right with the 90/90 test to improve postural awareness. PT Problem 3 PT Problem #3 Impaired Gait PT Goal 1 Goal Pt. will ambulate with equal right and left stance time noted over a duration of 10 minutes Target Visit 6 PT Problem 4 PT Problem #4 Impaired Functional Mobil PT Goal 1 Goal Pt. will present with less than 25% limitation on the Oswestry indicating significant functional improvement -Pt. will demonstrate ability to safely lift from floor to waist for 10 reps with 20# object with pain levels at 2/10 at worst Target Visit 6
--- NOTE | 2023-07-20 14:55 | PCPTNOTE ---
Pt cancelled this morning due to work conflict.
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
--- NOTE | 2023-09-02 09:55 | PCPTNOTE ---
Pt. called to cancel therapy this date due to having car trouble.
--- NOTE | 2023-09-08 11:08 | PCPTNOTE ---
Pt. called and cancelled therapy for this date due to having trouble with transportation.
--- NOTE | 2023-09-21 09:25 | PCPTNOTE ---
Mr. Talamantes did not show for his scheduled appointment. He did not contact the clinic regarding his status. Garrett Cisneros, MPT
--- NOTE | 2023-10-27 13:15 | PCPTNOTE ---
Mr. Talamantes attended a total of 8 treatment sessions from 07/14/23 to 09/15/23. He has failed to return to the clinic and has not contacted the clinic. The patient will be discharged from skilled PT at this time. Thank you for the referral of this patient. Garrett Csineros, MPT
== END 2023-10-12 23:59 | disposition home or self-care (01) ==
LOC: ANHPT 09:45
DX: M54.31 Sciatica, right side (principal)
CPT/HCPCS: 97014; 97110; 97140; 97161; 97530; 99199; G0283

== ENCOUNTER 2023-11-17 15:15 | Emergency (ER) | payer SELFPAY ==
[2023-11-17 15:29] VITALS: BP 121/84; PULSE 89; RESP 18; TEMP 36.7; O2SAT 97
--- NOTE | 2023-11-17 15:45 | ED.URI ---
HPI - URI/Sore Throat General Chief Complaint: Upper Respiratory Infection Stated Complaint: Sinus Time Seen by Provider: 11/17/23 15:45 Source: patient, RN notes reviewed and old records reviewed Mode of arrival: ambulatory Limitations: no limitations History of Present Illness HPI Narrative: 47-year-old male presents to the [facility] with complaints of sinus congestion since 08:30 last night. Took 1 dose of DayQuil this morning Related Data Home Medications Medication Instructions Recorded Confirmed No Home Medications 04/22/23 11/17/23 Allergies Allergy/AdvReac Type Severity Reaction Status Date / Time No Known Allergies Allergy Verified 04/22/23 11:22 Review of Systems Review of Systems: All systems reviewed & are unremarkable except as noted in HPI and below Constitutional: Constitutional: Reports no additional constitutional complaints Eyes: Eyes: Reports no additional eye complaints ENT: Reports as per HPI, Reports nasal congestion and Reports nasal discharge Cardiovascular: Cardiovascular: Reports no additional cardiovascular complaints, Denies chest pain and Denies dyspnea Respiratory: Respiratory: Reports no additional respiratory complaints, Denies chest congestion, Denies cough and Denies dyspnea Gastrointestinal: Gastrointestinal: Reports no additional gastrointestinal complaints, Denies abdominal pain, Denies nausea and Denies vomiting Musculoskeletal: Musculoskeletal: Reports no additional musculoskeletal complaints Integumentary/Breasts: Skin/Breast: Reports system reviewed and no additional complaints, except as docu Neurologic: Reports system reviewed and no additional complaints, except as documented Psychiatric: Psychiatric: Reports no additional psychiatric complaints Allergic/Immunologic: Allergic/Immunologic: Reports no additional allergic/immunologic complaints PMFSH Past Medical History Medical History Arthritis Fracture of left hand Fractures Healing, ligaments torn right ankle Sciatica Surgical History Surgical History No pertinent past surgical history Family History Family History Father , Cancer No problems noted. Mother Acute myocardial infarction Social History Social History Smoking status: Never smoker Tobacco type: cigarettes Second hand tobacco smoke exposure: Yes Alcohol intake: former Substance use: current Substance use type: marijuana Living arrangements: with family Occupation/Education: occupation Gender identity (if verbalized by the patient): Male Sexual Orientation (if Verbalized by the Patient): Straight or Heterosexual Comments At the time of my signature, I reviewed and agree with the nursing past medical, surgical, social, and family history. There is no relevant family history pertinent to the patient complaint. Exam Const: General: cooperative, healthy appearing, comfortable, no acute distress, well developed, alert and well nourished Nutritional Appearance: well nourished Orientation/consciousness: patient oriented x3 Limitations: no limitations HENMT: Head: normal to inspection Ears: hearing grossly normal bilaterally and external ears normal Face/Nose/Sinus: Normal external nose present, Normal nares present, Normal nasal mucous membranes and turbinates present, normal facial exam, face symmetric and No sinus tenderness Face and sinus: normal facial exam and face symmetric Mouth: Yes Normal oral and palatal mucosa present, Yes lip normal and Yes moist mucous membranes Throat: posterior oropharynx normal, uvula midline and postnasal drainage Eyes: General: appearance normal, both eyes and all related structures Alignment and Position: alignment normal Periorbital: solomon
== END 2023-11-17 16:04 | disposition home or self-care (01) ==
PROVIDERS: Emergency Provider Nurse Practitioner
DX: J06.9 Acute upper respiratory infection, unspecified (principal); J32.9 Chronic sinusitis, unspecified; Z20.822 Contact with and (suspected) exposure to COVID-19; F12.90 Cannabis use, unspecified, uncomplicated; M19.90 Unspecified osteoarthritis, unspecified site
CPT/HCPCS: 87426; 87804; 99213; G0463

== ENCOUNTER 2024-10-09 14:30 | Emergency (ER) | payer SELFPAY ==
[2024-10-09 14:40] VITALS: BP 125/74; PULSE 91; RESP 16; TEMP 37.3; O2SAT 96
--- NOTE | 2024-10-09 14:41 | ED_ITS ---
HPI - URI/Sore Throat General Stated Complaint: scratchy cough,dizzy,threw up,FABIAN, bodyaches Time Seen by Provider: 10/09/24 15:10 Source: patient, RN notes reviewed and old records reviewed Mode of arrival: ambulatory Limitations: no limitations History of Present Illness HPI Narrative: Patient presents with complaints of flu-like symptoms that have been present for a couple of days. He has not taken any medication for his symptoms. Reports that he is much more tired than usual, has had some nausea with 1 episode of vomiting. [place] dizzy once while at work. Otherwise complains headache, body aches, fever, cough Related Data Home Medications ?Medication ?Instructions ?Recorded ?Confirmed ?Last Taken ?Type No Home Medications 04/22/23 10/09/24 Unknown History Allergies Allergy/AdvReac Type Severity Reaction Status Date / Time No Known Allergies Allergy Verified 10/09/24 14:50 Review of Systems Review of Systems: All systems reviewed & are unremarkable except as noted in HPI and below Constitutional: Constitutional: Reports no additional constitutional complaints, Reports body ache(s), Reports chills, Reports fever(s), Reports headache(s) and Reports lethargy ENT: Reports system reviewed and no additional complaints, except as documented, Reports otalgia, Reports nasal congestion and Reports nasal discharge Cardiovascular: Cardiovascular: Reports no additional cardiovascular complaints Respiratory: Respiratory: Reports no additional respiratory complaints and Reports cough Gastrointestinal: Gastrointestinal: Reports no additional gastrointestinal complaints PMFSH Past Medical History Medical History Arthritis Fracture of left hand Fractures Healing, ligaments torn right ankle Sciatica Surgical History Surgical History No pertinent past surgical history Family History Family History Father , Cancer No problems noted. Mother Acute myocardial infarction Social History Social History Smoking status: Never smoker Tobacco type: cigarettes Second hand tobacco smoke exposure: Yes Alcohol intake: former Substance use: current Substance use type: marijuana Living arrangements: with family Occupation/Education: occupation Gender identity (if verbalized by the patient): Male Sexual Orientation (if Verbalized by the Patient): Straight or Heterosexual Comments At the time of my signature, I reviewed and agree with the nursing past medical, surgical, social, and family history. There is no relevant family history pertinent to the patient complaint. Exam Const: General: cooperative, no acute distress, alert, awake and uncomfortable Orientation/consciousness: oriented to person, oriented to place and oriented to time HENMT: Head: normal to inspection Resp: Effort & Inspection: normal respiratory effort and able to speak in complete sentences Auscultation: clear to auscultation bilaterally, no crackles, no rales, no rhonchi and no wheezes Cardio: Palpation: normal PMI Rate: regular rate Rhythm: regular rhythm Heart sounds: S1 normal heart sound present and S2 normal heart sound present Neuro: General: oriented to person, oriented to place and oriented to time Cranial nerves: Yes CN's II-XII intact bilaterally Psych: Appearance: grossly normal Thought process: Normal thought process present Insight: Good insight present (Psych) Judgement: Good judgement present (Psych) Course Course Level of Care: Express Care Visit Vital Signs Vital signs: Reviewed MDM - URI/Sore Throat MDM Narrative Medical decision making narrative: Patient nontoxic appearing, influenza a positive. Supportive care measures discussed. Work note provided. Discharge instructions reviewed with patient, as well as provided in writing per nursing staff. The instructions also include specific and strict return/GO TO THE ER as well as f/u information. All questions have been answered, and the patient deny any further questions with discharge and discharge plan. Some parts of this dictation were generated by voice recognition software and may contain typographical and/or grammatical inaccuracies. Differential Diagnosis Differential diagnosis: Likely upper respiratory infection, otitis media and viral infection Medical Records Attestation: I reviewed the patient's medical records. Lab Data Attestation: I reviewed the patient's lab results. Discharge Plan Discharge Clinical Impression: Influenza Patient Disposition: Home, Self-Care Condition: Stable Instructions: Antibiotic Form, Influenza (ED) Additional Instructions: Use [id number] medications to treat symptoms. Follow with primary care provider. Emergency department for new or worse symptoms Patient Language: [place] Islander Prescriptions: No Action No Home Medications Follow-up/Referrals: PHYSICIAN,SET UP AND CHARGER [Primary Care Provider] - Stand Alone Forms: Work/School Release IP Time of Disposition: 15:19
[2024-10-09 15:07] LABS: EDINFLUASCREEN Positive (Negative); EDINFLUBSCREEN Negative (Negative)
== END 2024-10-09 15:20 | disposition home or self-care (01) ==
PROVIDERS: Emergency Provider Nurse Practitioner Family
DX: J10.1 Influenza due to other identified influenza virus with other respiratory manifestations (principal); F12.90 Cannabis use, unspecified, uncomplicated; M19.90 Unspecified osteoarthritis, unspecified site
CPT/HCPCS: 87804; 99212; 99213; G0463

== ENCOUNTER 2025-01-16 11:51 | Emergency (ER) | payer SELFPAY ==
--- NOTE | 2025-01-16 11:53 | ED.DENTAL ---
HPI - Dental/Oral General Chief complaint: Dental/Oral Stated complaint: lump on tooth Time Seen by Provider: 01/16/25 11:52 Source: patient Mode of arrival: ambulatory Limitations: no limitations History of Present Illness HPI Narrative: patient is a 49-year-old male presenting with complaint of left upper dental pain. Pain began on Tuesday. He denies any constitutional symptoms. Reports history of similar on multiple occasions due to poor dentition. States he has a dentist appointment in 3 weeks. Treatment initiated prior to arrival include ibuprofen. no Additional complaints. Teeth map:  1. TTP Related Data Allergies Allergy/AdvReac Type Severity Reaction Status Date / Time No Known Allergies Allergy Verified 01/16/25 12:05 Review of Systems Review of Systems: CONSTITUTIONAL: Denies body aches, fever, chills, or sweats. EYES: Denies visual changes, redness, or discharge. ENT:Reports dental pain, swelling Denies rhinorrhea, congestion, sore throat, or otalgia. CARDIOVASCULAR: Denies chest pain, palpitations, or edema. RESPIRATORY: Denies cough or dyspnea. GASTROINTESTINAL: Denies abdominal pain, nausea, vomiting, or diarrhea. GENITOURINARY: Denies dysuria or hematuria. SKIN: Denies rash, itching, or wounds. MUSCULOSKELETAL: Denies back pain, joint pain, or myalgia. NEUROLOGIC: Denies headache, numbness, tingling, or weakness. PSYCH: Denies depression or anxiety. All systems reviewed & are unremarkable except as noted in HPI and below PMFSH Past Medical History Medical History Fracture of left hand Sciatica Fractures Healing, ligaments torn right ankle Arthritis Surgical History Surgical History No pertinent past surgical history Family History Family History Father , Cancer No problems noted. Mother Acute myocardial infarction Social History Social History Smoking status: Never smoker Tobacco type: cigarettes Second hand tobacco smoke exposure: Yes Alcohol intake: former Substance use: current Substance use type: marijuana Living arrangements: with family Occupation/Education: occupation Gender identity (if verbalized by the patient): Male Sexual Orientation (if Verbalized by the Patient): Straight or Heterosexual Exam Narrative: GENERAL: Well-appearing, well-nourished, and in no acute distress. HEAD: Normocephalic, atraumatic. EYES: EOMI. No redness or drainage. Conjunctivae normal. ENT: Mucous membranes pink and moist. Nares clear. No rhinorrhea. TMs normal bilaterally. Throat normal. Uvula midline. uvula is midline. There is no trismus. There is no evidence of Kaz angina. Diffuse poor dentition with caries extended to gumline. Numerous teeth are missing. No visible or palpable abscess present. NECK: Normal AROM. Supple. No lymphadenopathy. CHEST: No respiratory distress. Clear to auscultation. HEART: Regular rate and rhythm. No murmur appreciated. EXTREMITIES: Normal range of motion. No edema. SKIN: Warm, dry, no rash. Capillary refill normal. Normal skin turgor. NEURO: No focal deficits. Alert and oriented x3. Gait steady. PSYCH: Normal affect. No signs of depression or anxiety. HENMT: Teeth and gingiva: normal teeth and gingiva Course Course Level of Care: Express Care Visit Vital Signs Vital signs: Vital Signs Temperature 96.9 F L 01/16/25 11:58 Pulse Rate 87 01/16/25 11:58 Respiratory Rate 16 01/16/25 11:58 Blood Pressure 114/79 01/16/25 11:58 Pulse Oximetry 98 01/16/25 11:58 Oxygen Delivery Room Air 01/16/25 11:58 Temperature 96.9 F L 01/16/25 11:58 Pulse Rate 87 01/16/25 11:58 Respiratory Rate 16 01/16/25 11:58 Blood Pressure 114/79 01/16/25 11:58 Pulse Oximetry 98 01/16/25 11:58 Oxygen Delivery Room Air 01/16/25 11:58 MDM - Dental/Oral Differential Diagnosis Differential diagnosis: Likely gingival abscess, dental caries, toothache, dental abscess, fracture of tooth and aphthous ulcer Medical Records Attestation: I reviewed the patient's medical records. Medical records narrative: Error in transmission of Rx to pharmacy--called in verbal Rx- Clindamycin 150mg capsule take 3 capsules TID x 10 days, disp #90, no RF This dictation may have been done utilizing a voice recognition system. Attempts have been made to correct errors. However, there may be uncorrected grammatical, spelling, and recognition errors present. Discharge Plan Discharge Clinical Impression: Toothache, Dental caries Patient Disposition: Home Condition: Stable Instructions: Antibiotic Form Additional Instructions: Go straight to ER should your symptoms become worse or should any new symptoms develop Patient Language: Swedish Prescriptions: New clindamycin HCl [Cleocin HCl] 150 mg capsule 450 mg PO Q8H Qty: 90 0RF Follow-up/Referrals: UNKNOWN,DOCTOR [Non-Staff] - Stand Alone Forms: Work/School Release IP Time of Disposition: 12:05
[2025-01-16 11:58] VITALS: BP 114/79; PULSE 87; RESP 16; TEMP 36.1; O2SAT 98
== END 2025-01-16 12:15 | disposition home or self-care (01) ==
PROVIDERS: Emergency Provider Registered Nurse
DX: K08.89 Other specified disorders of teeth and supporting structures (principal); K02.9 Dental caries, unspecified; F12.90 Cannabis use, unspecified, uncomplicated; M19.90 Unspecified osteoarthritis, unspecified site
CPT/HCPCS: 99213; G0463